=== PATIENT | female | born 1960 | race Hispanic/Latino ===

== ENCOUNTER 2024-04-19 14:43 | Emergency (ER) | payer BC ==
[~2024-04-19] VITALS: Ht 152.4 cm; Wt 63.5 kg
[2024-04-19 14:56] VITALS: PULSE 98; RESP 16; TEMP 98.4; O2SAT 100
[2024-04-19] MEDS ORDERED: CEPHALEXIN500 MG PO (15:02)
== END 2024-04-19 15:05 | disposition home or self-care (01) ==
LOC: ER 14:51
DX: T20.16XA Burn of first degree of forehead and cheek, initial encounter (principal); X12.XXXA Contact with other hot fluids, initial encounter; Y93.G3 Activity, cooking and baking; Y92.89 Other specified places as the place of occurrence of the external cause
CPT/HCPCS: 99282